=== PATIENT | female | born 1990 | race Caucasian/White ===

== ENCOUNTER 2016-10-16 16:35 | Outpatient (CLI) | payer OTHER ==
[~2016-10-16] VITALS: Ht 170.2 cm; Wt 80.0 kg
[~2016-10-16 16:35] MED LIST: DICL100T PO; GABA600T PO
[2016-10-16 16:46] VITALS: BP 115/71
[2016-10-16] MEDS ORDERED: FERR325T3 PO (16:46)
[2016-10-16] MEDS ORDERED: PRENTAB9 PO (16:46)
== END 2016-10-16 18:48 | disposition home or self-care (01) ==
LOC: M LDO 16:35
PROVIDERS: ATTEND Specialist
DX: O47.1 False labor at or after 37 completed weeks of gestation (principal); Z3A.38 38 weeks gestation of pregnancy

== ENCOUNTER → 2019-07-16 | Outpatient (REF) | payer OTHER ==
[~2019-07-16] MED LIST changes: +BUPR8SUB SL; -DICL100T PO; +DICL100T89 PO; +FERR325T3 PO; -GABA600T PO; +GABA600T4 PO; +PRENTAB9 PO
== END ==
LOC: M LAB REF 16:55
PROVIDERS: ATTEND Obstetrics & Gynecology
DX: Z34.83 Encounter for supervision of other normal pregnancy, third trimester (principal); Z36.85 Encounter for antenatal screening for Streptococcus B

== ENCOUNTER 2019-07-22 11:19 | Inpatient (IN) | payer OTHER ==
[~2019-07-22] VITALS: Ht 172.7 cm; Wt 78.4 kg
[2019-07-22] VITALS (7 sets, daily range): BP systolic 113–138; BP diastolic 54–82
[~2019-07-22 11:19] MED LIST changes: -BUPR8SUB SL
[2019-07-22] MEDS ORDERED: LR 1,000 ML IV SCH ×2 (11:38→16:15)
[2019-07-22] MEDS ORDERED: LACTATED RINGER'S 1000 ML IV STA (11:38)
[2019-07-22] MEDS ORDERED: BUPR8SUB SL (11:53)
[2019-07-22 12:23] LABS: HEMOGLOBIN 10.2 g/dl (12.0-15.5); MEAN CORPUSCULAR HEMOGLOBIN 24.9 pg (27.0-33.0); MEAN CORPUSCULAR VOLUME 82.9 fl (80.0-96.0); PLATELET COUNT, AUTOMATED 227 10^3/uL (150-450); WHITE BLOOD COUNT 12.3 10^3/uL (4.0-10.0)
[2019-07-22 12:47] LABS: AMPHETAMINES URINE REFLEX NEGATIVE (NEGATIVE); BARBITURATES URINE REFLEX NEGATIVE (NEGATIVE); BENZODIAZEPINES URINE REFLEX NEGATIVE (NEGATIVE); CANNABINOIDS URINE REFLEX NEGATIVE (NEGATIVE); COCAINE METABOLITE URINE REFLE NEGATIVE (NEGATIVE); METHADONE URINE REFLEX NEGATIVE (NEGATIVE); OPIATES URINE REFLEX NEGATIVE (NEGATIVE); PHENCYCLIDINE URINE REFLEX NEGATIVE (NEGATIVE)
[2019-07-22] MEDS ORDERED: MORPHINE PRES-FREE INJ 10 MG/10 ML VIAL (J2274) As Ordered ONE (13:47)
[2019-07-22] MEDS ORDERED: BICITRA 30ML SOLN UDC PO ONE (14:00)
[2019-07-22] MEDS ORDERED: ceFAZolin SOD 2 GM in IV 1 EA IV ONE (14:00)
[2019-07-22] MEDS ORDERED: AZITHROMYCIN INJ 500 MG, VIAL MATE ADAPTER 1 EACH in D5W 250 ML IV ONE (14:00)
--- NOTE | 2019-07-22 14:00 | HPE ---
DATE OF ADMISSION: 07/22/2019 Sandrita is a 29-year-old female 6, para 4-0-1-4 with a history of two prior section. The patient was being evaluated after presented with complaints of contractions every 3-4 minutes since 9:00 a.m. She does have a history of prior section was scheduled for elective repeat section. Upon admission in labor and delivery she was found to be in labor. At this point a decision was made to admit the patient to proceed with the section. The patient does have a history of opiate abuse, currently on Subutex program. She was just transferred to our office late in her from [place] after being sent here for possible intensive care unit (NICU) if needed. Her records as well as her old record reviewed, other than the drug abuse. HISTORY: Essentially unremarkable. SOCIAL HISTORY: The patient is a smoker. She does smoke approximately 10 cigarettes per day. She denies any alcohol. PAST SURGICAL HISTORY: section times two. SOCIAL HISTORY: She is a ex-drug abuser currently on Subutex. She is also smoker. FAMILY HISTORY: Unknown. LAB: Blood type is A negative, rubella immune, hepatitis negative, HIV negative, GC chlamydia negative. The patient did receive RhoGAM 28 weeks. Her 1-hour sugar testing was negative, GBS is negative. Urine tox screen on admission was negative. PHYSICAL EXAMINATION: HEENT: Grossly within normal limits. Abdomen: Soft, nontender, nondistended. Extremities: No clubbing, cyanosis or edema. Vaginal exam: 3 cm, soft with bulging membrane. Fetus in vertex position. Tracing reviewed category 1 tracing with contractions every 3-4 minutes. ASSESSMENT: 1. Intrauterine at 38 weeks gestation in labor with a history of prior section times two for elective repeat section. 2. History of drug abuse currently on Subutex. PLAN: Admit the patient to labor and delivery. Consent for repeat section obtained. All questions answered. Anesthesia notified. Will await anesthesia for repeat section.
[2019-07-22] MEDS ORDERED: BUPIVACAINE LIPOSOME/PF 1.3% 20ML VIAL (13.3MG/ML)(EXPAREL)(C9290 PER1MG) As Ordered ONE (14:03)
[2019-07-22] MEDS ORDERED: NALOXONE INJ 0.4 MG/1 ML VIAL (J2310) IV PRN ×2 (14:17)
[2019-07-22] MEDS ORDERED: ONDANSETRON 4MG/2ML VIAL (J2405) IV PRN ×3 (14:17→16:15)
[2019-07-22] MEDS ORDERED: NALBUPHINE HCL 10 MG/ML AMP (J2300) IV PRN (14:17)
[2019-07-22] MEDS ORDERED: diphenhydrAMINE INJ 50MG/ML VIAL (J1200) IV PRN (14:17)
[2019-07-22] MEDS ORDERED: METOCLOPRAMIDE INJ 10MG/2ML VIAL (J2765) IV PRN ×2 (14:17→16:15)
[2019-07-22] MEDS ORDERED: PROPOFOL 200 MG/20 ML VIAL As Ordered ONE (14:37)
[2019-07-22] MEDS ORDERED: ONDANSETRON 4MG/2ML VIAL (J2405) As Ordered ONE (14:43)
[2019-07-22 14:55] LABS: CORD GAS ABE A -1.9; CORD GAS HCO3 A 25.6 MEQ/L; CORD GAS O2 SAT A 49.9 %; CORD GAS PCO2 A 53.9 mmHg; CORD GAS PH A 7.295 UNITS; CORD GAS PO2 A 19.8 mmHg; CORD GAS SBC A 21.6 MEQ/L; CORD GAS TCO2 A 27.3 MEQ/L
[2019-07-22] MEDS ORDERED: KETOROLAC 60 MG/2 ML VIAL (J1885) As Ordered ONE (14:57)
[2019-07-22 14:58] LABS: CORD GAS ABE V -1.3; CORD GAS HCO3 V 24.9 MEQ/L; CORD GAS O2 SAT V 75.7 %; CORD GAS PCO2 V 46.5 mmHg; CORD GAS PH V 7.346 UNITS; CORD GAS PO2 V 30.5 mmHg; CORD GAS SBC V 22.8 MEQ/L; CORD GAS TCO2 V 26.3 MEQ/L
[2019-07-22] MEDS ORDERED: PHENYLephrine HCL 500 MCG/5 ML (100MCG/ML) SYRINGE (J2370) As Ordered ONE (15:03)
[2019-07-22] MEDS ORDERED: OXYTOCIN DRIP 30 UNITS in IV 1 EA IV SCH (15:18)
--- NOTE | 2019-07-22 15:24 | RO ---
DATE OF PROCEDURE: 07/22/2019 Sandrita is a 29-year-old female 6, para 4-0-1-4 with a history of two prior sections who presented at 38 weeks gestation in labor. After counseling, a decision was made to proceed with the repeat section. PREOPERATIVE DIAGNOSES: 1. Term in labor. 2. History of prior section times two. 3. Desires elective repeat section. POSTOPERATIVE DIAGNOSES: 1. Term in labor. 2. History of prior section times two. 3. Desires elective repeat section. 4. Placental accreta. 5. Thinned lower uterine segment. PROCEDURES: 1. Repeat section. 2. Revision of old scar. ANESTHESIA: Spinal. SURGEON: Dr. Leyva PURCHASING AGENT: Karin Campbell COMPLICATIONS: None. ESTIMATED BLOOD LOSS: 700 mL. FINDINGS: Live male in occiput transverse position with a placental accreta. scores 9 and 9. weight 7 pounds 1 ounce. Placenta removed manually. Bilateral ovaries and tubes within normal limits. DESCRIPTION OF PROCEDURE: After obtaining informed consent, the patient was taken to the operating room where spinal anesthetic was found to be adequate. She was then draped and prepped usual sterile fashion in the supine position. At this point, elliptical incision was made over her old scar. The old scar was removed and this was carried down to the fascia with the assistance of Karin Campbell. The incision was extended. The perineal cavity entered bluntly. A Mobius skin retractor was placed. At this point, a low-transverse uterine incision was made. Copious amount of clear amniotic fluid noted. Infant was delivered in atraumatic fashion. Nose and mouth bulb suctioned. Cord doubly clamped and cut and infant was handed over to awaiting warmer. Cord blood and cord gas were sent. Placenta removed manually. Uterus cleared of all clot and debris. The uterine incision was then repaired in two separate layers of 0 Vicryl sutures. Pelvis copiously irrigated with normal saline and suctioned out. Attention turned to the peritoneum, which was closed in a running fashion using 2-0 Vicryl. Fascia closed in two separate segment of 0 Vicryl sutures. All superficial bleeders coagulated and skin was reapproximated in subcuticular fashion using 3-0 Vicryl on a Xavier. Steri-Strips placed. The patient tolerated procedure well. She was then transferred to recovery room in stable condition.
[2019-07-22] MEDS ORDERED: ACETAMINOPHEN 500 MG TAB PO PRN (15:30)
[2019-07-22] MEDS ORDERED: MEASLES,MUMPS,RUBELLA VACCINE INJ (MMR-II) (90707) SC SCH (15:30)
[2019-07-22] MEDS ORDERED: RHOGAM 300 MCG (1500 IU) INJ (J2790) IM SCH (15:30)
[2019-07-22] MEDS ORDERED: HYDROMORPHONE HCL 0.5 MG/ 0.5 ML SYRINGE (J1170 PER 1) IV PRN (16:15)
[2019-07-22] MEDS ORDERED: KETOROLAC 30 MG/ML VIAL (J1885) IV PRN (16:15)
[2019-07-22] MEDS ORDERED: oxyCODONE 5MG TAB PO PRN (16:15)
[2019-07-22] MEDS ORDERED: fentaNYL 100 MCG/2 ML INJECTION (J3010) As Ordered ONE (16:18)
[2019-07-22] MEDS: fentaNYL 100 MCG/2 ML INJECTION (J3010) IV PRN ×4 (16:23→16:41)
[2019-07-22] MEDS ORDERED: ACETAMINOPHEN TAB 650MG DOSE (2X325MG) PO PRN (16:30)
[2019-07-22] MEDS ORDERED: OXYTOCIN 30 UNITS IN 0.9% NaCl 500ML IV BAG (J2590) As Ordered ONE (16:32)
[2019-07-22 16:53] LABS: RUBELLA IgG QUALITATIVE IMMUNE (IMMUNE)
[2019-07-22] MEDS ORDERED: BUPRENORPHINE/NALOXONE 8-2MG SUBLINGUAL TABLET(SUBOXONE) SL SCH (21:00)
[2019-07-22] MEDS: DOCUSATE SODIUM 100 MG CAP PO SCH (22:05)
[2019-07-22] MEDS: IBUPROFEN 800 MG TAB PO PRN (22:05)
[2019-07-23 02:00] VITALS: BP 110/52
[2019-07-23 05:44] VITALS: BP 114/58
[2019-07-23 06:41] LABS: HEMATOCRIT 28.9 % (36.0-47.0); HEMOGLOBIN 8.6 g/dl (12.0-15.5); MEAN CORPUSCULAR HEMOGLOBIN 24.9 pg (27.0-33.0); MEAN CORPUSCULAR HGB CONC 29.8 g/dl (32.0-36.5); MEAN CORPUSCULAR VOLUME 83.5 fl (80.0-96.0); PLATELET COUNT, AUTOMATED 209 10^3/uL (150-450); RED BLOOD COUNT 3.46 10^6/uL (4.00-5.40); WHITE BLOOD COUNT 12.5 10^3/uL (4.0-10.0)
[2019-07-23] MEDS: DOCUSATE SODIUM 100 MG CAP PO SCH ×2 (08:22→21:00)
[2019-07-23] MEDS: IBUPROFEN 800 MG TAB PO PRN ×2 (08:22→17:31)
[2019-07-23] MEDS: PRENATAL VITAMINS CHEWABLE TABLET PO SCH (08:22)
[2019-07-23] MEDS: BUPRENORPHINE 2 MG SL SCH (09:00)
[2019-07-23 10:00] VITALS: BP 128/60
[2019-07-23 14:00] VITALS: BP 121/67
[2019-07-23 18:00] VITALS: BP 127/76
[2019-07-23 22:18] VITALS: BP 130/60
[2019-07-24 02:18] VITALS: BP 127/61
[2019-07-24 06:14] VITALS: BP 115/67
[2019-07-24] MEDS: PRENATAL VITAMINS CHEWABLE TABLET PO SCH (09:16)
[2019-07-24] MEDS: DOCUSATE SODIUM 100 MG CAP PO SCH (09:17)
[2019-07-24] MEDS: BUPRENORPHINE 2 MG SL SCH (09:17)
== END 2019-07-24 10:55 | disposition home or self-care (01) | DRG 540 ==
LOC: M LDO 11:19 → M LDI 13:28 → M OBS 17:46
PROVIDERS: ADMIT Obstetrics & Gynecology; ATTEND Obstetrics & Gynecology
PROC: 0HB7XZZ Excision of Abdomen Skin, External Approach (ICD-10-PCS; 2019-07-22)
PROC: 10D00Z1 Extraction of Products of Conception, Low, Open Approach (ICD-10-PCS; principal; 2019-07-22 14:00)
DX: O34.211 Maternal care for low transverse scar from previous cesarean delivery (principal); F17.210 Nicotine dependence, cigarettes, uncomplicated; O75.82 Onset (spontaneous) of labor after 37 completed weeks of gestation but before 39 completed weeks gestation, with delivery by (planned) cesarean section; O99.334 Smoking (tobacco) complicating childbirth; Z3A.38 38 weeks gestation of pregnancy; O43.213 Placenta accreta, third trimester; Z37.0 Single live birth

== ENCOUNTER → 2021-05-26 | Outpatient (REF) ==
[~2021-05-26] MED LIST changes: +BUPR8SUB SL
--- NOTE | 2021-05-26 16:25 | REP ---
INDICATION: PAIN COMPARISON: None. TECHNIQUE: AP, lateral, coned-down views of the lumbar spine. FINDINGS: Three views of the lumbosacral spine demonstrate satisfactory alignment and lordosis without acute fracture / compression injury or subluxation. No significant degenerative changes are appreciated. IMPRESSION: 1. No acute fracture / compression injury or subluxation. 2. Examination is essentially age-appropriate and without obvious degenerative changes. If the patient remains symptomatic consider MRI for further investigation. <Electronically signed by Eric Knight > 05/26/21 [id number]
== END ==
LOC: M PLALAB 14:02
PROVIDERS: ATTEND Internal Medicine
DX: M54.9 Dorsalgia, unspecified (principal)

== ENCOUNTER → 2023-09-19 | Outpatient (REF) | LOC: M PLAIMG 14:04 | PROVIDERS: ATTEND Internal Medicine | DX: R52 Pain, unspecified (principal) ==